=== PATIENT | female | born 1945 | race Caucasian/White ===

== ENCOUNTER 2017-12-30 10:41 | Inpatient (IN) | payer OTHER ==
[~2017-12-30] VITALS: Ht 162.6 cm; Wt 74.4 kg
[2017-12-30] VITALS (7 sets, daily range): BP systolic 51–90; BP diastolic 26–42
[2017-12-30] MEDS ORDERED: AMLO-512 PO (10:58)
[2017-12-30 11:10] LABS: BASOPHILS % (AUTO) 0.7 % (0.0-2.0); EOSINOPHILS % (AUTO) 5.4 % (1.0-6.0); HEMATOCRIT 29.2 % (36-46); HEMOGLOBIN 9.6 g/dL (12.0-16.0); LYMPHOCYTES # (AUTO) 6.6 K/uL (1.0-4.8); LYMPHOCYTES % (AUTO) 46.1 % (22.0-44.0); MEAN CORPUSCULAR VOLUME 97 fL (80-100); MONOCYTES # (AUTO) 0.8 K/uL (0.1-1.0); MONOCYTES % (AUTO) 5.7 % (2.0-9.0); NEUTROPHILS % (AUTO) 42.1 % (40.0-70.0); PLATELET COUNT (AUTO) 149 K/uL (150-450); RED BLOOD CELL COUNT(AUTO) 3.01 MIL/uL (4.00-5.20); RED CELL DISTRIBUTION WIDTH 18.9 % (11.5-14.5)
[2017-12-30 11:17] LABS: ANION GAP 19 mmol/L (8-16); CALCIUM, TOTAL 8.8 mg/dL (8.8-10.5); CARBON DIOXIDE 24 mmol/L (22-29); CHLORIDE 96 mmol/L (98-107); CREATININE 10.76 mg/dL (0.60-1.30); GLOMERULAR FILTR. RATE CALC 4 mL/min (>60); GLUCOSE,RANDOM 311 mg/dL (70-110); POTASSIUM 3.9 mmol/L (3.5-5.1); SODIUM SERUM 139 mmol/L (136-145); UREA NITROGEN, BLOOD 67 mg/dL (7-18)
[2017-12-30 11:19] LABS: PROTHROMBIN TIME 10.5 SEC (9.4-11.6)
[2017-12-30 11:43] LABS: ALANINE AMINOTRANSFERASE 58 U/L (12-78); ALKALINE PHOSPHATASE 159 U/L (46-116); ASPARTATE AMINOTRANSFERASE 47 U/L (15-37); BILIRUBIN,TOTAL 0.5 mg/dL (0.1-1.0); CREATINE KINASE MB 1.5 ng/mL (0-5); CREATINE KINASE, TOTAL 79 U/L (26-192); TOTAL PROTEIN, SERUM 7.1 g/dL (6.4-8.2)
[2017-12-30] MEDS ORDERED: SODIUM CHLORIDE 0.9% 1,000 ML IV ONE (12:00)
[2017-12-30] MEDS ORDERED: SODIUM CHLORIDE 0.9% 100 ML ONE (12:03)
[2017-12-30] MEDS ORDERED: LOSA25TA21 PO (12:11)
[2017-12-30] MEDS ORDERED: GABA-529 PO (12:11)
[2017-12-30] MEDS ORDERED: ATOR10TA84 PO (12:11)
[2017-12-30] MEDS ORDERED: METO25 PO (12:11)
[2017-12-30] MEDS ORDERED: HYDR10TA31 PO (12:11)
[2017-12-30] MEDS ORDERED: LEVE250T55 PO (12:11)
[2017-12-30] MEDS ORDERED: DOPamine HCL 400 MG/D5%-WATER 250 ML IV PRN (12:17)
[2017-12-30] MEDS ORDERED: RAPID SEQUENCE KIT [RSI] 1 EACH KIT ONE (12:24)
[2017-12-30] MEDS ORDERED: PIPERACILLIN SODIUM/TAZOBACTAM 2.25 GM in DEXTROSE 5%-WATER 50 ML IV ONE (12:30)
[2017-12-30 13:08] LABS: LACTIC ACID 11.6 mmol/L (0.4-2.0)
[2017-12-30] MEDS ORDERED: NOREPINEPHRINE 4 MG/D5%-WATER 250 ML IV ONE (13:21)
[2017-12-30] MEDS ORDERED: NOREPINEPHRINE 4 MG/D5%-WATER 250 ML IV PRN (14:00)
[2017-12-30] MEDS ORDERED: MORPHINE SULFATE 4 MG/ML SYRINGE IVP PRN (16:15)
[2017-12-30] MEDS ORDERED: ACETAMINOPHEN 325 MG TABLET PO PRN (16:15)
[2017-12-30] MEDS ORDERED: IPRATROPIUM BROMIDE 0.5 MG/2.5 ML NEB SOLUTION NEB PRN (16:15)
[2017-12-30] MEDS ORDERED: PHENYLEPHRINE 200 MG/D5%-WATER 250 ML IV PRN (16:15)
[2017-12-30] MEDS ORDERED: VASOPRESSIN 40 UNITS in DEXTROSE 5%-WATER 98 ML IV PRN (16:15)
[2017-12-30] MEDS ORDERED: ONDANSETRON HCL 4 MG/2 ML VIAL IVP PRN (16:15)
[2017-12-30] MEDS ORDERED: HYDROCODONE/ACETAMINOPHEN 5-325 MG TABLET PO PRN (16:15)
[2017-12-30] MEDS ORDERED: ALBUTEROL SULFATE 2.5 MG/0.5 ML NEB SOLUTION NEB PRN (16:15)
[2017-12-30] MEDS ORDERED: BISACODYL 10 MG RECTAL RECTAL SUPPOSITORY PR PRN (16:15)
[2017-12-30] MEDS ORDERED: MAGNESIUM HYDROXIDE SUSPENSION 30 ML UDCUP PO PRN (16:15)
[2017-12-30] MEDS ORDERED: VANCOMYCIN HCL 1 GM/D5% WATER 200 ML IV PRN (16:30)
[2017-12-30] MEDS ORDERED: SODIUM CHLORIDE 0.9% 250 ML IV ONE (16:32)
[2017-12-30 16:35] LABS: BASOPHILS % (AUTO) 0.8 % (0.0-2.0); EOSINOPHILS % (AUTO) 0.2 % (1.0-6.0); HEMATOCRIT 33.6 % (36-46); HEMOGLOBIN 10.9 g/dL (12.0-16.0); LYMPHOCYTES # (AUTO) 2.6 K/uL (1.0-4.8); LYMPHOCYTES % (AUTO) 9.7 % (22.0-44.0); MEAN CORPUSCULAR HEMOGLOBIN 31.5 pg (26.0-34.0); MEAN CORPUSCULAR HGB CONC 32.4 G/dL (31.0-37.0); MEAN CORPUSCULAR VOLUME 97 fL (80-100); MONOCYTES # (AUTO) 1.3 K/uL (0.1-1.0); MONOCYTES % (AUTO) 4.8 % (2.0-9.0); NEUTROPHILS # (AUTO) 22.8 K/uL (1.8-7.7); NEUTROPHILS % (AUTO) 84.5 % (40.0-70.0); PLATELET COUNT (AUTO) 202 K/uL (150-450); RED BLOOD CELL COUNT(AUTO) 3.45 MIL/uL (4.00-5.20); RED CELL DISTRIBUTION WIDTH 16.9 % (11.5-14.5)
[2017-12-30] MEDS ORDERED: PHENYLEPHRINE HCL 800 MG in DEXTROSE 5%-WATER 170 ML IV PRN (16:46)
[2017-12-30] MEDS ORDERED: NOREPINEPHRINE BITARTRATE 16 MG in DEXTROSE 5%-WATER 234 ML IV PRN (16:46)
[2017-12-30] MEDS ORDERED: PROPOFOL 1000 MG/ISO-OSM 100 ML IV PRN (16:46)
[2017-12-30] MEDS ORDERED: VANCOMYCIN HCL 1 GM/D5% WATER 200 ML IV ONE (17:00)
[2017-12-30] MEDS ORDERED: DOPamine HCL 400 MG/D5%-WATER 250 ML IV ONE ×2 (17:01→17:05)
[2017-12-30 17:08] LABS: CKMB RELATIVE INDEX 3.4 % (0.0-4.0); CREATINE KINASE MB 9.1 ng/mL (0-5); THYROID STIMULATING HORMONE 1.97 uIU/mL (0.36-3.74)
[2017-12-30] MEDS: DOPamine HCL 800 MG/D5%-WATER 250 ML IV PRN ×2 (17:11→18:04)
[2017-12-30] MEDS ORDERED: PIPERACILLIN SODIUM/TAZOBACTAM 2.25 GM in DEXTROSE 5%-WATER 50 ML IV SCH (20:00)
[2017-12-30] MEDS ORDERED: INFLUENZA VIRUS VACCINE QVS 2017-18 (3YR+)/PF 60 MCG/0.5 ML SYRINGE IM ONE (20:30)
[2017-12-30] MEDS ORDERED: PNEUMOCOCCAL VACCINE POLYVALENT 0.5 ML VIAL [PPSV23] IM ONE (20:30)
[2017-12-30] MEDS ORDERED: DEXTROSE 50%-WATER 25 GM/50 ML SYRINGE IVP PRN (20:30)
[2017-12-30] MEDS ORDERED: INSULIN REGULAR, HUMAN 100 UNITS/ML SQ PRN (20:30)
[2017-12-30] MEDS ORDERED: DOCUSATE SODIUM 100 MG CAPSULE PO SCH (21:00)
[2017-12-30 21:05] LABS: ABG A-A DIFF O2 504.5 mmHg (10-20.0); ABG BASE EXCESS -20.1 mmol/L (-2.0-3.0); ABG CARBOXYHEMOGLOBIN 0.2 % (0.0-1.5); ABG HCO3 10.5 mmol/L (22.0-26.0); ABG METHEMOGLOBIN 0.3 % (0.0-1.5); ABG OXYGEN CONTENT 16.2 mL/dL (15.0-23.0); ABG OXYGEN SATURATION 98.4 % (95.0-98.0); ABG OXYHEMOGLOBIN 97.9 % (94.0-100.0); ABG PCO2 32 mmHg (35-45); ABG TOTAL HEMOGLOBIN 11.5 G/dL (12.0-18.0); PO2, ARTERIAL BG 175.8 mmHg (75.0-83.0); SOURCE, BLOOD GAS ARTERIAL
[2017-12-30 21:06] LABS: ABG PH 7.095 (7.35-7.450); O2 DEVICE,BLOOD GAS VENTILATOR (ROOM AIR); SITE, BLOOD GAS LFT RADIAL
[2017-12-30 21:07] LABS: PEEP,BG 5 cm H2O; SPONTANEOUS VT, BG 425 ml; VT, ABG 450 ml
[2017-12-30] MEDS ORDERED: SODIUM BICARBONATE 150 MEQ in DEXTROSE 5%-WATER 1,000 ML IV SCH (21:45)
[2017-12-30] MEDS ORDERED: ATROPINE SULFATE 0.1 MG/ML 10 ML SYRINGE IVP ONE (23:07)
[2017-12-30] MEDS ORDERED: EPINEPHrine 1:10,000 [1 MG/10 ML] SYRINGE IVP ONE (23:32)
[2017-12-30] MEDS ORDERED: ETOMIDATE 2 MG/ML 10 ML VIAL IVP ONE (23:32)
[2017-12-30] MEDS ORDERED: VECURONIUM BROMIDE 10 MG/VIAL IV ONE (23:32)
[2017-12-31] MEDS ORDERED: PANTOPRAZOLE SODIUM 40 MG/VIAL IVP SCH (09:00)
== END 2017-12-30 23:33 | disposition expired | DRG 871 ==
LOC: EMS 10:44 → EDBD 10:44 → ICU 15:12
PROVIDERS: ADMIT Hospitalist; ATTEND Hospitalist
PROC: 5A1935Z Respiratory Ventilation, Less than 24 Consecutive Hours (ICD-10-PCS; principal; 2017-12-30)
PROC: 0BH17EZ Insertion of Endotracheal Airway into Trachea, Via Natural or Artificial Opening (ICD-10-PCS; 2017-12-30)
PROC: 3E0234Z Introduction of Serum, Toxoid and Vaccine into Muscle, Percutaneous Approach (ICD-10-PCS; 2017-12-30)
PROC: 30233N1 Transfusion of Nonautologous Red Blood Cells into Peripheral Vein, Percutaneous Approach (ICD-10-PCS; 2017-12-30)
DX: A41.9 Sepsis, unspecified organism (principal); J96.91 Respiratory failure, unspecified with hypoxia; I46.9 Cardiac arrest, cause unspecified; N18.6 End stage renal disease; E46 Unspecified protein-calorie malnutrition; I13.11 Hypertensive heart and chronic kidney disease without heart failure, with stage 5 chronic kidney disease, or end stage renal disease; T82.838A Hemorrhage due to vascular prosthetic devices, implants and grafts, initial encounter; E11.22 Type 2 diabetes mellitus with diabetic chronic kidney disease; E11.40 Type 2 diabetes mellitus with diabetic neuropathy, unspecified; D64.9 Anemia, unspecified; E11.51 Type 2 diabetes mellitus with diabetic peripheral angiopathy without gangrene; E78.5 Hyperlipidemia, unspecified; Z89.511 Acquired absence of right leg below knee; Z68.28 Body mass index [BMI] 28.0-28.9, adult; Z99.2 Dependence on renal dialysis; Z23 Encounter for immunization; Z79.899 Other long term (current) drug therapy; Z83.3 Family history of diabetes mellitus
CPT/HCPCS: 51702; 70450; 71250; 74018; 82805; 83605; 84443; 86850; 86900; 86901; 86920; 87040; 87081; 87340; 92950; 93005; 94002; J0171; J0461; J1265; J2370; J2543; J3370; J3490; J7050; J7060; P9016